=== PATIENT | male | born 1945 | race African-American/Black ===

== ENCOUNTER 2022-09-21 05:00 | Day surgery (SDC) | payer OTHER ==
[~2022-09-21] VITALS: Ht 177.8 cm; Wt 59.0 kg
[~2022-09-21 05:00] MED LIST: CEFAZOLIN SOD 2 GM in D5W 50 ML IV ONE
[2022-09-21] MEDS ORDERED: MEPERIDINE HCL/PF 25 MG/ML DISP.SYRIN IVP PRN (09:15)
[2022-09-21] MEDS ORDERED: HYDROmorphone 1 MG/ML INJ. CARTRIDGE IVP PRN (09:15)
[2022-09-21] MEDS ORDERED: ONDANSETRON HCL 4 MG/2 ML VIAL IVP PRN (09:15)
[2022-09-21] MEDS ORDERED: KETOROLAC TROMETHAMINE 30 MG VIAL IVP PRN (09:15)
[2022-09-21] MEDS ORDERED: CEFAZOLIN SOD 2 GM in D5W 50 ML IV ONE (09:15)
[2022-09-21] MEDS ORDERED: LR 1,000 ML IV SCH (09:15)
[2022-09-21] MEDS ORDERED: METOCLOPRAMIDE HCL 10 MG/2 ML VIAL IVP PRN (09:15)
[2022-09-21] MEDS ORDERED: SEVOFLURANE 15 MIN GAS INH ONE (11:40)
[2022-09-21] MEDS ORDERED: BUPIVACAINE /PF 0.25% 30 ML VIAL INJ ONE (11:40)
[2022-09-21] MEDS ORDERED: SUCCINYLCHOLINE CHLORIDE 20 MG/ML(QUELICIN) ONE (11:40)
[2022-09-21] MEDS ORDERED: SUGAMMADEX SODIUM 200 MG/2 ML VIAL IV ONE (11:40)
[2022-09-21] MEDS ORDERED: LR 1,000 ML IV.SOLN IV ONE (11:40)
[2022-09-21] MEDS ORDERED: PROPOFOL 200MG/ 20ML VIAL (DIPRIVAN) IV ONE (11:40)
[2022-09-21] MEDS ORDERED: MEPERIDINE 100 MG INJ. 100 MG/ML VIAL ONE (11:40)
[2022-09-21] MEDS ORDERED: NS IRRIG SOLN 1000 ML IR ONE (11:40)
[2022-09-21] MEDS ORDERED: fentaNYL CITRATE/PF 100 MCG/2 ML AMP ONE (11:40)
[2022-09-21] MEDS ORDERED: WATER FOR IRRIGATION,STERILE 1,000 ML IRRIG.SOLN IR ONE (11:40)
[2022-09-21] MEDS ORDERED: ROCURONIUM BROMIDE 10 MG/ML (ZEMURON) ONE (11:40)
[2022-09-21] MEDS ORDERED: TRAM50TA2 PO (11:59)
[2022-09-21] MEDS ORDERED: DOCU250C14 PO (12:01)
[2022-09-21] MEDS ORDERED: KETOROLAC TROMETHAMINE 30 MG VIAL ONE (13:43)
[2022-09-21 16:41] VITALS: BP_SYST 125
== END 2022-09-21 15:20 | disposition home or self-care (01) ==
LOC: SMU 05:00 → SDS 05:00
PROVIDERS: ATTEND Surgery
DX: K40.20 Bilateral inguinal hernia, without obstruction or gangrene, not specified as recurrent (principal); K42.9 Umbilical hernia without obstruction or gangrene; Z20.822 Contact with and (suspected) exposure to COVID-19; F17.210 Nicotine dependence, cigarettes, uncomplicated; Z79.899 Other long term (current) drug therapy
CPT/HCPCS: 87081; 49650; 49591; 36415; 87426; J0690 ×2; J7060 ×2; J3490 ×2; J1885; J2704; J0330; J2175; J7120; C1727; C1781; E0190; J3010